=== PATIENT | female | born 1965 | race Caucasian/White ===

== ENCOUNTER 2018-11-17 21:11 | Inpatient (IN) ==
[2018-11-18] MEDS ORDERED: Bisacodyl 10 MG Supp RECTAL PRN (01:27)
--- NOTE | 2018-11-18 02:07 | P.HPIM ---
History of Present Illness Service: [facility] Primary Care Physician: PROVIDER NON STAFF Chief Complaint: Weakness History of Present Illness: 53-year-old female with a history of anxiety, HTN presented to the [place] ER with complaints of numbness and tingling for the last 3 days. It is located in both lower extremities and right upper extremity. She states she is able to move her right hand but has difficulty grasping objects. She does complain of lower back tenderness with palpation. Denies falling or any trauma.She denies any headaches, dizziness, vision changes , chest pain, sob, fevers, chills or abdominal pain. Scans were completed at [place]; head CT reviewed shows no acute intracranial abnormality, cervical spine CT shows mild to moderate multilevel degenerative disc degenerative facet change without evidence of acute fracture. She was transfer to [place] to be evaluated by neurology Inpatient Certification Inpatient Certification: I certify that the inpatient services were ordered in accordance with Medicare regulations governing the order. This includes certification that hospital inpatient services are reasonable and necessary and in the case of services not specified as inpatient-only under 42 CFR 419.22(n), that they are appropriately provided as inpatient services in accordance to with the 2-midnight benchmark under 43 CFR 412.3(e) Estimated Total Length of Stay (Days): 3 Plans for Post Hospital Care: Home Review of Systems Review of Systems: all other systems reviewed are negative [facility] Medical History Medical History Anxiety (Acute) HTN (hypertension) (Acute) Surgical History Surgical History History of cholecystectomy (Acute) Family History Family History Mother Heart disease Social History Social History Substance History: No History of Abuse Second Hand Smoke Exposure: No Smoking Status: Never smoker How Often Do You Have a Drink Containing Alcohol: Monthly or less Immunization History Tetanus Immunization: Unsure Hx Influenza Vaccine This Season: Yes Medications and Allergies Allergies Allergy/AdvReac Type Severity Reaction Status Date / Time citalopram AdvReac Anxiety Verified 11/18/18 03:15 codeine AdvReac Nausea Verified 11/18/18 03:15 nalbuphine AdvReac Nausea Verified 11/18/18 03:13 Active Medications: Active Medications Acetaminophen (Tylenol) 650 mg PO Q4H PRN PRN Reason: Temp > 100.4 Al Hydroxide/Mg Hydroxide (Milk Of Magnesia Liq) 30 ml PO Q12H PRN PRN Reason: Mild Constipation Bisacodyl (Dulcolax Supp) 10 mg RECTAL DAILY PRN PRN Reason: SEVERE CONSITIPATION Lactulose (Lactulose Liq) 30 ml PO DAILY PRN PRN Reason: SEVERE CONSITIPATION Ondansetron HCl (Zofran Inj) 4 mg IV.PUSH Q6H PRN PRN Reason: NAUSEA OR VOMITING Sennosides (Senokot) 17.2 mg PO Q12H PRN PRN Reason: Moderate Constipation Sodium Chloride (Ns Flush) 2 ml IV.FLUSH PRN PRN PRN Reason: FLUSH AFTER USING IV ACCESS Sodium Chloride (Ns Flush) 2 ml IV.FLUSH BID DONNY Physical Exam Vital signs: Intake & Output 11/17/18 11/17/18 11/18/18 06:59 18:59 06:59 Weight 77.111 kg Other: Date of Last Bowel Movement 11/17/18 Weight On Admission 77.328 kg Narrative: GENERAL: In no distress SKIN: Warm and dry. no open lesions EYES: No scleral icterus. No injection or drainage. NECK: Supple, trachea midline. No JVD or lymphadenopathy. CARDIOVASCULAR: Regular rate and rhythm without murmurs, gallops, or rubs. RESPIRATORY: Breath sounds equal bilaterally. No accessory muscle use. GASTROINTESTINAL: Abdomen soft, non-tender, nondistended. MUSCULOSKELETAL: No cyanosis, or edema. Decreased practice management consultant in right hand; 3/5. 5/5 in bilateral lower extremities. decreased sensation in lower extremities. Caprini VTE Risk Assessment Caprini VTE Risk Assessment: No/Low Risk (score <= 1) Caprini Risk Assessment Model: Point Value = 1 Point Value = 2 Point Value = 3 Point Value = 5 Age 41-60 Minor surgery BMI > 25 kg/m2 Swollen legs Varicose veins or History of unexplained or recurrent spontaneous Oral contraceptives or hormone replacement Sepsis (< 1 month) Serious lung disease, including pneumonia (< 1 month) Abnormal pulmonary function Acute myocardial infarction Congestive heart failure (< 1 month) History of inflammatory bowel disease Medical patient at bed rest Age 61-74 Arthroscopic surgery Major open surgery (> 45 min) Laparoscopic surgery (> 45 min) Malignancy Confined to bed (> 72 hours) Immobilizing plaster cast Central venous access Age >= 75 History of VTE Family history of VTE Factor V Leiden Prothrombin [id number] Lupus anticoagulant Anticardiolipin antibodies Elevated serum homocysteine Heparin-induced thrombocytopenia Other congenital or acquired thrombophilia Stroke (< 1 month) Elective arthroplasty Hip, pelvis, or leg fracture Acute spinal cord injury (< 1 month) Prophylaxis Regimen: Total Risk Factor Score Risk Level Prophylaxis Regimen 0-1 Low Early ambulation 2 Moderate Order ONE of the following: *Sequential Compression Device (SCD) *Heparin 5000 units SQ BID 3-4 Higher Order ONE of the following medications: *Heparin 5000 units SQ TID *Enoxaparin/Lovenox 40 mg SQ daily (WT < 150 kg, CrCl > 30 mL/min) *Enoxaparin/Lovenox 30 mg SQ daily (WT < 150 kg, CrCl > 10-29 mL/min) *Enoxaparin/Lovenox 30 mg SQ BID (WT < 150 kg, CrCl > 30 mL/min) AND/OR *Sequential Compression Device (SCD) 5 or more Highest Order ONE of the following medications: *Heparin 5000 units SQ TID (Preferred with Epidurals) *Enoxaparin/Lovenox 40 mg SQ daily (WT < 150 kg, CrCl > 30 mL/min) *Enoxaparin/Lovenox 30 mg SQ daily (WT < 150 kg, CrCl > 10-29 mL/min) *Enoxaparin/Lovenox 30 mg SQ BID (WT < 150 kg, CrCl > 30 mL/min) AND *Sequential Compression Device (SCD) Assessment and Plan Plan 53-year-old female with a history of anxiety, HTN presented to the [place] ER with complaints of numbness and tingling for the last 3 days. Weakness, numbness in right upper and bilateral lower extremities CT head reviewed shows no acute abnormalities CT cervical spine reviewed showed multilevel mild degenerative -Consult neurology, patient was accepted by Dr. Garg; appreciate assistance -Lumbar puncture ordered -MRI brain, MRI cervical spine and lumbar spine ordered -Flexeril p.o. for muscle pain -N.P.o. -Labs; cmp, cbc, tsh, vitamin b12, sed rate HTN, chronic -resume home medication when med rec is complete. DVT prophylaxis: SCDs
[2018-11-18 07:17] LABS: Baso % (Auto) 0.3 % (0.0-2.0); Eos % (Auto) 0.6 % (0.0-4.0); Hematocrit 42.1 % (35.0-46.0); Hemoglobin 14.2 gm/dL (11.6-15.3); Lymph # (Auto) 1.7 th/mm3 (1.0-4.8); Lymph % (Auto) 22.1 % (9.0-44.0); Mean Corpuscular HGB Conc 33.7 % (32.0-36.0); Mean Corpuscular Hemoglobin 29.4 pg (27.0-34.0); Mean Platelet Volume 7.8 fL (7.0-11.0); Mono # (Auto) 0.3 th/mm3 (0.0-0.9); Mono % (Auto) 4.5 % (0.0-8.0); Neut # (Auto) 5.6 th/mm3 (1.8-7.7); Neut % (Auto) 72.5 % (16.0-70.0); Platelet Count 254 th/mm3 (150-450); Red Blood Count 4.84 mil/mm3 (4.00-5.30); Red Cell Distribution Width 14.1 % (11.6-17.2); White Blood Count 7.7 th/mm3 (4.0-11.0)
[2018-11-18 07:38] LABS: Alanine Aminotransferase 15 U/L (10-53); Albumin 3.6 g/dL (3.4-5.0); Anion Gap 5 meq/L (5-15); Aspartate Aminotransferase 8 U/L (15-37); Blood Urea Nitrogen 13 mg/dL (7-18); Calcium 8.7 mg/dL (8.5-10.1); Carbon Dioxide 30.2 meq/L (21.0-32.0); Chloride 106 meq/L (98-107); Glomerular Filtration Rate 71 mL/min (>89); Glucose,Random 82 mg/dL (74-106); Potassium 3.8 meq/L (3.5-5.1); Sodium 141 meq/L (136-145)
[2018-11-18 07:40] LABS: Alkaline Phosphatase 81 U/L (45-117); Total Protein 6.8 g/dL (6.4-8.2)
[2018-11-18 08:04] LABS: Thyroid Stimulating Hormone 1.42 uIU/mL (0.358-3.740)
[2018-11-18] MEDS ORDERED: Gadobutrol PF 10 MMOL/10 ML Vial (for RAD) IV.SIG ONE ×2 (09:35→14:24)
--- NOTE | 2018-11-18 10:04 | MR ---
EXAM DATE: 11/18/2018 9:56 AM EST AGE/SEX: 53 years / Female INDICATIONS: . Bilateral upper and lower extremity numbness and tingling. CLINICAL DATA: This is the patient's initial encounter. Patient reports that signs and symptoms have been present for 2 days and indicates a pain score of 0/10. MEDICAL/SURGICAL HISTORY: Hypertension. Cholecystectomy. COMPARISON: [facility], MR HEAD W & W/O CONTRAST, 11/18/2018. . TECHNIQUE: 3D [id number] MRA was performed. Source images, multiplanar STS MIP, and 3D volum e MIP reconstructions were reviewed. FINDINGS: There is excellent visualization of the major intracranial arteries out to the second-order branch ve ssels. There is no evidence for aneurysm, vessel truncation or stenosis, and no evidence for vascula r malformation. Distal internal carotid artery is normal in caliber. Anterior communicating artery. 3 vessels of anterior cerebral arteries, normal variant. No stenosis. CONCLUSION: 1. No large vessel stenosis or aneurysm. 2. Normal variants as above Electronically signed by: Gil Matthew MD Board Certified Radiologist 11/18/2018 10:03 AM EST
--- NOTE | 2018-11-18 10:27 | MR ---
EXAM DATE: 11/18/2018 10:03 AM EST AGE/SEX: 53 years / Female INDICATIONS: . Bilateral upper and lower extremity numbness and tingling. CLINICAL DATA: This is the patient's initial encounter. Patient reports that signs and symptoms have been present for 2 days and indicates a pain score of 0/10. MEDICAL/SURGICAL HISTORY: Hypertension. Cholecystectomy. COMPARISON: No prior exams available for comparison. TECHNIQUE: Multiplanar, multisequence MRI examination of the lumbar spine was performed without and with 8cc ml Gadavist (gadobutrol) contrast as a single exam dose. FINDINGS: The most caudal-appearing lumbar vertebra is numbered as L5. Vertebra: Homogeneous signal. Disc space narrowing at L1-2 and L2-3 levels. Minimal endplate edema a t L2-3 anteriorly. Minimal retrolisthesis L2 on 3. Conus: Normal level and configuration. Post Contrast: No abnormal areas of contrast enhancement are seen. T12-L1: The thecal sac has a normal diameter. No evidence of disc bulge or protrusion. The neural foramina are patent bilaterally. L1-L2: Moderate right-sided protrusion abuts the ventral thecal sac and abuts the right L2 nerve ro ot lateral recess. No canal stenosis. Neural foramen are patent bilaterally. L2-L3: Minimal retrolisthesis. Mild broad-based disc bulge abuts ventral thecal sac without canal s tenosis. Mild facet arthropathy. Mild neural femoral narrowing on the left. Right neural foramen chirstiansen nt. Trace fluid in the right facet. L3-L4: Mild broad-based disc bulge abuts ventral thecal sac without canal stenosis. The neural for felipe are patent bilaterally. Mild facet arthropathy. L4-L5: Mild broad-based disc bulge abuts ventral thecal sac without canal stenosis. The neural for felipe are patent bilaterally. Mild facet arthropathy. L5-S1: The thecal sac has a normal diameter. No evidence of disc bulge or protrusion. The neural foramina are patent bilaterally. Mild facet arthropathy. CONCLUSION: 1. Moderate right-sided protrusion at L1-2 abuts the right L2 nerve root without canal stenosis. 2. Interval retrolisthesis and mild broad-based disc bulge at L2-3. No canal stenosis. 3. Mild broad-based disc bulges at L3-4 and L4-5 levels without canal stenosis. 4. Diffuse facet arthropathy including trace fluid in the right facet at L2-3. Electronically signed by: Gil Matthew MD Board Certified Radiologist 11/18/2018 10:26 AM EST
--- NOTE | 2018-11-18 10:30 | MR ---
EXAM DATE: 11/18/2018 9:56 AM EST AGE/SEX: 53 years / Female INDICATIONS: . Bilateral upper and lower extremity numbness and tingling. CLINICAL DATA: This is the patient's initial encounter. Patient reports that signs and symptoms have been present for 2 days and indicates a pain score of 0/10. MEDICAL/SURGICAL HISTORY: Hypertension. Cholecystectomy. COMPARISON: [facility], MRA HEAD W/O CONTRAST, 11/18/2018. . TECHNIQUE: Multiplanar, multisequence examination of the brain was performed without and with 8cc ml Gadavist (gadobutrol) contrast as a single exam dose. FINDINGS: Cerebrum: The ventricles are normal for age. No evidence of midline shift, mass lesion, hemorrhage or acute infarction. No extraaxial fluid collections are seen. The pituitary gland and suprasellar cistern are normal in configuration. White Matter: Scattered foci of bright T2 lesions seen within the subcortical, centrum semiovale and periventricular white matter some of which is perpendicular to the ventricular system. Some callosal lesions are seen. Posterior Fossa: The cerebellum and brainstem are intact. The 4th ventricle is midline. The cerebel lopontine angle is unremarkable. The cerebellar tonsils are normal in position. Diffusion Imaging: No focal areas of restricted diffusion are seen. No evidence of acute infarction . Extracranial: The visualized portions of the orbits and paranasal sinuses are unremarkable. Post Contrast: No abnormal areas of parenchymal or dural enhancement. No evidence of blood-brain ba rrier breakdown. CONCLUSION: 1. Nonspecific white matter changes are nonspecific but could be a demyelinating process such as mul tiple sclerosis. No active enhancement. 2. The remainder the brain is otherwise unremarkable. Electronically signed by: Gil Matthew MD Board Certified Radiologist 11/18/2018 10:29 AM EST
--- NOTE | 2018-11-18 10:35 | MR ---
EXAM DATE: 11/18/2018 10:04 AM EST AGE/SEX: 53 years / Female INDICATIONS: . Bilateral upper and lower extremity numbness and tingling. CLINICAL DATA: This is the patient's initial encounter. Patient reports that signs and symptoms have been present for 2 days and indicates a pain score of 0/10. MEDICAL/SURGICAL HISTORY: Hypertension. Cholecystectomy. COMPARISON: No prior exams available for comparison. TECHNIQUE: Multiplanar, multisequence MRI examination of the cervical spine was performed without an d with 8cc ml Gadavist (gadobutrol) contrast as a single exam dose. FINDINGS: Vertebrae: No compression fracture. There is straightening of the cervical spine without spondylolis thesis. Partial fusion with small vertebral bodies at C4-5 likely congenital. This spaces are otherwi se maintained. Cord: Abnormal T2 signal abnormality in the cord at C6 and C7 levels seen predominantly on the right aspect of the cord with slight cord expansion. The remainder the cord is otherwise unremarkable. Post Fossa: The cerebellar tonsils are normal in position. Post Contrast: No abnormal areas of enhancement are seen. C2-C3: The thecal sac has a normal configuration. There is no evidence of disc herniation or spinal canal stenosis. The neural foramina are patent bilaterally. C3-C4: The thecal sac has a normal configuration. There is no evidence of disc herniation or spinal canal stenosis. The neural foramina are patent bilaterally. C4-C5: The thecal sac has a normal configuration. There is no evidence of disc herniation or spinal canal stenosis. The neural foramina are patent bilaterally. C5-C6: Mild broad-based protrusion abuts the ventral thecal sac and abuts the ventral cord causing m ild canal stenosis. Uncovertebral spurring causes moderate left and mild right neural foraminal narro wing. C6-C7: Mild broad-based protrusion abuts the ventral thecal sac and ventral cord causing mild canal stenosis. T2 signal abnormality seen within the cord on the right with slight expansion. Mild neural foraminal narrowing bilaterally. C7-T1: No epidural impressions seen. CONCLUSION: 1. There is abnormal T2 signal abnormality within the right aspect of the cord with slight expansion at C6 and C7 levels with enhancement. Given the findings in the brain is likely related to demyelina ting process such as multiple sclerosis. Neoplasm remains in the differential but felt to be less lik paul. Close follow-up recommended. 2. Mild broad-based protrusion at C5-6 causes mild canal stenosis. 3. Mild broad-based protrusion at C6-7 also causes mild canal stenosis. 4. Neural foraminal narrowing at C5-6 and C6-7 levels as above. 5. 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 Electronically signed by: Gil Matthew MD Board Certified Radiologist 11/18/2018 10:34 AM EST
--- NOTE | 2018-11-18 11:11 | P.CONNEU ---
History of Present Illness Service: Neurology Primary Care Provider: PROVIDER NON STAFF Chief Complaint: Weakness History of Present Illness: 53-year-old female transferred from [facility] has had no neurological coverage for further evaluation. She presented to the ER with weakness in her right hand. Symptoms began with numbness discomfort weakness in her legs right leg mainly. Ongoing for the past week. However on further retrospection she states she had some problems the right leg but was chalking it up to sciatica right hip pain. She denies any vision loss or any history of known optic neuritis, vertigo. She denies any recent ill contacts immunizations. No known history of TIA or stroke. No known history of demyelinating disorder. Review of Systems All other systems reviewed negative except as stated in HPI COUNTS INCLUDE 234 BEDS AT THE [facility] - History History Provided By: Patient - Medical History Medical History: Medical History (Last Reviewed 11/18/18 @ 11:21 by Faith Rolle) Anxiety HTN (hypertension) - Surgical History Surgical History: Surgical History (Last Reviewed 11/18/18 @ 11:21 by Faith Rolle) History of cholecystectomy - Family History Family History: Family History (Last Reviewed 11/18/18 @ 11:21 by Faith Rolle) Mother Heart disease - Tobacco History Second Hand Smoke Exposure: No Smoking Status: Never smoker - Alcohol History How Often Do You Have a Drink Containing Alcohol: Monthly or less - Substance Use History Substance History: No History of Abuse - Immunization History Tetanus Immunization: Unsure Hx Influenza Vaccine This Season: Yes Medications and Allergies Active Medications: Active Medications Acetaminophen (Tylenol) 650 mg PO Q4H PRN PRN Reason: Temp > 100.4 Al Hydroxide/Mg Hydroxide (Milk Of Magnesia Liq) 30 ml PO Q12H PRN PRN Reason: Mild Constipation Bisacodyl (Dulcolax Supp) 10 mg RECTAL DAILY PRN PRN Reason: SEVERE CONSITIPATION Cyclobenzaprine HCl (Flexeril) 5 mg PO Q8H PRN PRN Reason: MUSCLE PAIN Last Admin: 11/18/18 03:10 Dose: 5 mg Lactulose (Lactulose Liq) 30 ml PO DAILY PRN PRN Reason: SEVERE CONSITIPATION Ondansetron HCl (Zofran Inj) 4 mg IV.PUSH Q6H PRN PRN Reason: NAUSEA OR VOMITING Sennosides (Senokot) 17.2 mg PO Q12H PRN PRN Reason: Moderate Constipation Sodium Chloride (Ns Flush) 2 ml IV.FLUSH PRN PRN PRN Reason: FLUSH AFTER USING IV ACCESS Sodium Chloride (Ns Flush) 2 ml IV.FLUSH BID DONNY Last Admin: 11/18/18 08:34 Dose: 2 ml Allergies Allergy/AdvReac Type Severity Reaction Status Date / Time citalopram AdvReac Anxiety Verified 11/18/18 03:15 codeine AdvReac Nausea Verified 11/18/18 03:15 nalbuphine AdvReac Nausea Verified 11/18/18 03:13 Home Medications Medication Instructions Recorded Confirmed Type aspirin 81 mg PO DAILY 11/18/18 11/18/18 History bupropion HCl [Wellbutrin XL] PO AC BREAKFAST 11/18/18 History buspirone PO TID 11/18/18 History diazepam [Valium] PO PRN 11/18/18 History diltiazem HCl [Cardizem] 120 mg PO DAILY 11/18/18 11/18/18 History lisinopril PO DAILY 11/18/18 History Exam Vital signs: Vital Signs 11/17/18 11:30 11/18/18 04:00 11/18/18 08:43 Temperature 98.2 F 98.2 F 98.0 F Pulse Rate 89 87 93 H Respiratory Rate 16 Blood Pressure 140/69 135/65 126/76 Pulse Oximetry 95 94 L 95 Intake & Output 11/17/18 11/18/18 11/18/18 18:59 06:59 18:59 Weight 77.111 kg Other: # Voids 1 Date of Last Bowel Movement 11/17/18 11/17/18 Weight On Admission 77.328 kg Narrative: GENERAL: in NAD, SKIN: Warm and dry. HEAD: Atraumatic. Normocephalic. EYES: Pupils equal and round. No scleral icterus. ENT: No nasal bleeding or discharge. Mucous membranes pink and moist. NECK: Trachea midline. No JVD. CARDIOVASCULAR: Regular rate and rhythm. RESPIRATORY: No accessory muscle use. GASTROINTESTINAL: Abdomen soft, non-tender, nondistended. MUSCULOSKELETAL: Extremities without clubbing, cyanosis, or edema. No obvious deformities. NEUROLOGICAL: Awake and alert. No aphasia, oriented x3 fluent articulate, No facial asymmetry, OU 3-2mm, eomi, VFF, No drift. Right distal hand paresis reduced fine finger movements slow opening and closing of her hand is able to raise all 4 extremity gravity. Mild increased tone in both lower extremities right greater than left. Left hemisensory with reduced pinprick left leg and back with sensory level up to the left C4 region. Brisk knee jerk and ankle 2-3 + with right ankle clonus. Slightly increased tone right greater than left leg. Pinprick normal right leg slightly reduced in the right palm of her hand gait not assessed secondary to fall risk PSYCHIATRIC: Appropriate mood and affect; insight and judgment normal. - Constitutional no acute distress - Routine HEENT Exam Head: Present: normocephalic Eye: Present: EOMI Results - Labs CBC & Chem 7: 11/18/18 06:33 11/18/18 06:33 Labs: Laboratory Results - last 24 hr 11/18/18 11/18/18 11/18/18 06:33 06:33 06:33 WBC 7.7 RBC 4.84 Hgb 14.2 Hct 42.1 MCV 87.0 MCH 29.4 MCHC 33.7 RDW 14.1 Plt Count 254 MPV 7.8 Neut % (Auto) 72.5 H Lymph % (Auto) 22.1 [place] % (Auto) 4.5 Eos % (Auto) 0.6 Baso % (Auto) 0.3 Neut # (Auto) 5.6 Lymph # (Auto) 1.7 [place] # (Auto) 0.3 Eos # (Auto) 0.0 Baso # (Auto) 0.0 WBC Differential . Differential Comment Auto diff final ESR 13 Sodium 141 Potassium 3.8 Chloride 106 Carbon Dioxide 30.2 Anion Gap 5 BUN 13 Creatinine 0.84 Estimated GFR 71 L Random Glucose 82 Calcium 8.7 Total Bilirubin 0.4 AST 8 L ALT 15 Alkaline Phosphatase 81 Total Protein 6.8 Albumin 3.6 Vitamin B12 TSH 11/18/18 06:33 WBC RBC Hgb Hct MCV MCH MCHC RDW Plt Count MPV Neut % (Auto) Lymph % (Auto) [place] % (Auto) Eos % (Auto) Baso % (Auto) Neut # (Auto) Lymph # (Auto) [place] # (Auto) Eos # (Auto) Baso # (Auto) WBC Differential Differential Comment ESR Sodium Potassium Chloride Carbon Dioxide Anion Gap BUN Creatinine Estimated GFR Random Glucose Calcium Total Bilirubin AST ALT Alkaline Phosphatase Total Protein Albumin Vitamin B12 346 TSH 1.420 - Imaging Impressions Cervical Spine MRI 11/18/18 00:00 CONCLUSION: 1. There is abnormal T2 signal abnormality within the right aspect of the cord with slight expansion at C6 and C7 levels with enhancement. Given the findings in the brain is likely related to demyelinating process such as multiple sclerosis. Neoplasm remains in the differential but felt to be less likely. Close follow-up recommended. 2. Mild broad-based protrusion at C5-6 causes mild canal stenosis. 3. Mild broad-based protrusion at C6-7 also causes mild canal stenosis. 4. Neural foraminal narrowing at C5-6 and C6-7 levels as above. 5. 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 Head MRI 11/18/18 00:00 CONCLUSION: 1. Nonspecific white matter changes are nonspecific but could be a demyelinating process such as multiple sclerosis. No active enhancement. 2. The remainder the brain is otherwise unremarkable. Head MRA 11/18/18 00:00 CONCLUSION: 1. No large vessel stenosis or aneurysm. 2. Normal variants as above Lumbar Spine MRI 11/18/18 00:00 CONCLUSION: 1. Moderate right-sided protrusion at L1-2 abuts the right L2 nerve root without canal stenosis. 2. Interval retrolisthesis and mild broad-based disc bulge at L2-3. No canal stenosis. 3. Mild broad-based disc bulges at L3-4 and L4-5 levels without canal stenosis. 4. Diffuse facet arthropathy including trace fluid in the right facet at L2-3. 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 Her symptoms localized to the cervical cord lesion which is affecting the right hemicord. She presents with crossed signs right-sided weakness and left hemisensory. In addition for the past few months she has had some spasms and discomfort mild weakness in her right leg off and on likely related to this underlying condition. Etiology would include demyelinating condition such as multiple sclerosis, autoimmune, metabolic. Less likely infectious. Neoplasm a possibility although the MRI brain findings less likely Recommendations MRI T-spine CSF studies IV Solu-Medrol 1 g/day Physical therapy In the future she will require repeat imaging of her brain and C-spine 6-8 weeks time Discussed with the patient
--- NOTE | 2018-11-18 14:53 | MR ---
EXAM DATE: 11/18/2018 2:44 PM EST AGE/SEX: 53 years / Female INDICATIONS: Extremity numbness. Bilateral upper and lower extremity numbness and weakness. CLINICAL DATA: This is the patient's initial encounter. Patient reports that signs and symptoms have been present for 2 days and indicates a pain score of 0/10. MEDICAL/SURGICAL HISTORY: Hypertension. Cholecystectomy. COMPARISON: No prior exams available for comparison. TECHNIQUE: Multiplanar, multisequence MRI of the thoracic spine was performed without and with 8cc m l Gadavist (gadobutrol) contrast as a single exam dose. 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 No discrete disc protrusion s. No canal stenosis. No cord signal abnormalities within the thoracic cord. There is focal cord sign al abnormality in the lower cervical cord. See cervical spine MRI report. Postcontrast images reveal no abnormal enhancing lesions within the thoracic spine. CONCLUSION: 1. No acute findings. No cord signal abnormalities within the thoracic cord. See cervical spine MRI report. Electronically signed by: Karan Herzog MD Board Certified Radiologist 11/18/2018 2:51 PM EST
[2018-11-18] MEDS: MethylPREDNISolone Sod Suc Inj 500 MG in Sodium Chlor 0.9% Inj 100 ML IV.SIG SCH (15:05)
[2018-11-18 16:11] LABS: C-Reactive Protein 1.94 mg/dL (0.00-0.30)
[2018-11-18 16:11] LABS: Prothrombin Time 10.3 sec (9.8-11.6)
--- NOTE | 2018-11-18 16:28 | OTSOAPIP ---
TIME SESSION COMPLETED: AM TREATMENT TIME: 0 MINS. CHART REVIEWED. HELD TREATMENT TODAY PATIENT SCHEDULED FOR MULTIPLE PROCEDURES PLAN: WILL SEE PATIENT NEXT TREATMENT DAY Therapist: Faith Rolle Signature on file
[2018-11-19] MEDS: Acetaminophen 325 MG Tablet PO PRN ×2 (02:13→21:32)
[2018-11-19] MEDS: MethylPREDNISolone Sod Suc Inj 500 MG in Sodium Chlor 0.9% Inj 100 ML IV.SIG SCH ×2 (02:16→15:07)
--- NOTE | 2018-11-19 09:16 | P.PNNEU ---
Subjective Subjective Comments: rt hand feels stronger. hot/cold dysregulation. no dyspnea. no cp Active Medications: Active Medications Acetaminophen (Tylenol) 650 mg PO Q4H PRN PRN Reason: Temp > 100.4 Last Admin: 11/19/18 02:13 Dose: 650 mg Al Hydroxide/Mg Hydroxide (Milk Of Magnesia Liq) 30 ml PO Q12H PRN PRN Reason: Mild Constipation Bisacodyl (Dulcolax Supp) 10 mg RECTAL DAILY PRN PRN Reason: SEVERE CONSITIPATION Cyclobenzaprine HCl (Flexeril) 5 mg PO Q8H PRN PRN Reason: MUSCLE PAIN Last Admin: 11/18/18 03:10 Dose: 5 mg Methylprednisolone Sodium Succinate 500 mg/ Sodium Chloride 108 mls @ 100 mls/ hr IV.SIG Q12H [facility] Stop: 11/21/18 03:05 Last Infusion: 11/19/18 03:21 Dose: Infused Lactulose (Lactulose Liq) 30 ml PO DAILY PRN PRN Reason: SEVERE CONSITIPATION Ondansetron HCl (Zofran Inj) 4 mg IV.PUSH Q6H PRN PRN Reason: NAUSEA OR VOMITING Sennosides (Senokot) 17.2 mg PO Q12H PRN PRN Reason: Moderate Constipation Sodium Chloride (Ns Flush) 2 ml IV.FLUSH PRN PRN PRN Reason: FLUSH AFTER USING IV ACCESS Sodium Chloride (Ns Flush) 2 ml IV.FLUSH BID DONNY Last Admin: 11/18/18 21:56 Dose: 2 ml Allergies/Adverse Reactions: Allergies Allergy/AdvReac Type Severity Reaction Status Date / Time citalopram AdvReac Anxiety Verified 11/18/18 03:15 codeine AdvReac Nausea Verified 11/18/18 03:15 nalbuphine AdvReac Nausea Verified 11/18/18 03:13 Review of Systems All other systems reviewed negative except as stated in HPI Physical Exam Vital signs: Vital Signs 11/18/18 12:58 11/18/18 17:08 11/18/18 20:35 Temperature 98.0 F 98.4 F 98.2 F Pulse Rate 105 H 95 H 86 Respiratory Rate 18 16 17 Blood Pressure 137/81 114/66 125/75 Pulse Oximetry 96 96 94 L 11/19/18 00:00 11/19/18 01:30 11/19/18 03:53 Temperature 97.5 F L 97.6 F Pulse Rate 79 80 Respiratory Rate 18 16 17 Blood Pressure 126/75 111/62 Pulse Oximetry 95 96 Intake & Output 11/18/18 11/19/18 11/19/18 18:59 06:59 18:59 Intake Total 108 / 108 108 / 108 Balance 108 / 108 108 / 108 Weight 77.3 kg Intake: IV 108 / 108 108 / 108 SoluMEDROL Inj 500 MG In NS Inj 108 / 108 108 / 108 100 ML @ 100 mls/hr IV.SIG Q12H [facility] Rx#:[id number] Oral 0 / 0 Other: # Voids 1 3 Date of Last Bowel Movement 11/17/18 11/17/18 # Bowel Movements 0 Narrative: GENERAL: in NAD, SKIN: Warm and dry. HEAD: Atraumatic. Normocephalic. EYES: Pupils equal and round. No scleral icterus. ENT: No nasal bleeding or discharge. NECK: Trachea midline. No JVD. CARDIOVASCULAR: Regular rate and rhythm. RESPIRATORY: No accessory muscle use. GASTROINTESTINAL: Abdomen soft, non-tender, nondistended. MUSCULOSKELETAL: Extremities without clubbing, cyanosis, or edema. No obvious deformities. NEUROLOGICAL: Awake and alert. No aphasia, oriented x3 fluent articulate, No facial asymmetry, OU 3-2mm, eomi, VFF, No drift. Right distal hand paresis reduced fine finger movements slow opening and closing of her hand is able to raise all 4 extremity gravity. Rt hand able to open and close better. Mild increased tone in both lower extremities right greater than left. Left hemisensory with reduced pinprick left leg and back with sensory level up to the left C4 region. Brisk knee jerk and ankle 2-3+ with right ankle clonus. Slightly increased tone right greater than left leg. Pinprick normal right leg slightly reduced in the right palm of her hand gait not assessed secondary to fall risk PSYCHIATRIC: Appropriate mood and affect; insight and judgment normal. - Constitutional no acute distress - Routine HEENT Exam Head: Present: normocephalic Eye: Present: EOMI Objective Laboratory Results - last 24 hr 11/18/18 11/18/18 11/18/18 15:17 15:17 15:27 ESR 12 PT 10.3 INR 1.0 APTT 29.6 C-Reactive Protein Vitamin B12 Serum IgG Serum Albumin HIV 1&2 Ab/P24 Ag 4thGn 11/18/18 11/18/18 11/18/18 15:27 15:27 15:27 ESR PT INR APTT C-Reactive Protein 1.94 H Vitamin B12 337 Serum IgG Cancelled Serum Albumin Cancelled HIV 1&2 Ab/P24 Ag 4thGn Nonreactive Review/Management - Diagnosis (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 Her symptoms localized to the cervical cord lesion which is affecting the right hemicord. She presents with crossed signs right-sided weakness and left hemisensory. In addition for the past few months she has had some spasms and discomfort mild weakness in her right leg off and on likely related to this underlying condition. Etiology would include demyelinating condition such as multiple sclerosis, autoimmune, metabolic. Less likely infectious. Neoplasm a possibility although the MRI brain findings less likely mri tspine nml esr, nml, hiv negative. Recommendations neuro a little improved CSF studies-pending IV Solu-Medrol 1 g/day day 2/3 Physical therapy In the future she will require repeat imaging of her brain and C-spine 6-8 weeks time Discussed with the patient
[2018-11-19 09:51] LABS: RPR Screen For Reflex FTA Nonreactive (Nonreactive)
[2018-11-19 11:57] LABS: Lymphocytes, CSF 97 %; Monocytes,CSF 3 %; Neutrophils,CSF 0 %; RBC on Tube 4 0 /mm3
--- NOTE | 2018-11-19 14:06 | P.PNIM ---
Subjective Interval history: Patient reports she had her lumbar puncture done earlier this morning and is on bedrest. She says that after 2 doses of IV steroids she has increased movement and use of her right hand, but only about 50% better so far. Physical Exam Vital signs: Vital Signs 11/18/18 17:08 11/18/18 20:35 11/19/18 00:00 Temperature 98.4 F 98.2 F 97.5 F L Pulse Rate 95 H 86 79 Respiratory Rate 16 17 18 Blood Pressure 114/66 125/75 126/75 Pulse Oximetry 96 94 L 95 11/19/18 01:30 11/19/18 03:53 11/19/18 08:00 Temperature 97.6 F 98.1 F Pulse Rate 80 90 Respiratory Rate 16 17 20 Blood Pressure 111/62 143/85 H Pulse Oximetry 96 95 11/19/18 12:59 Temperature 98.7 F Pulse Rate 107 H Respiratory Rate 22 Blood Pressure 158/84 H Pulse Oximetry 96 Intake & Output 11/18/18 11/19/18 11/19/18 18:59 06:59 18:59 Intake Total 108 / 108 108 / 108 Balance 108 / 108 108 / 108 Weight 77.3 kg Intake: IV 108 / 108 108 / 108 SoluMEDROL Inj 500 MG In NS Inj 108 / 108 108 / 108 100 ML @ 100 mls/hr IV.SIG Q12H [facility] Rx#:[id number] Oral 0 / 0 Other: # Voids 1 3 Date of Last Bowel Movement 11/17/18 11/17/18 # Bowel Movements 0 Narrative: GENERAL: In no distress SKIN: Warm and dry. no open lesions EYES: No scleral icterus. No injection or drainage. NECK: Supple, trachea midline. No JVD or lymphadenopathy. CARDIOVASCULAR: Regular rate and rhythm without murmurs, gallops, or rubs. RESPIRATORY: Breath sounds equal bilaterally. No accessory muscle use. GASTROINTESTINAL: Abdomen soft, non-tender, nondistended. MUSCULOSKELETAL: No cyanosis, or edema. 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 5/5 in bilateral lower extremities. decreased sensation in lower extremities. Results Labs CBC & Chem 7: 11/18/18 06:33 11/18/18 06:33 Labs: Microbiology 11/19/18 10:20 Lumbar Puncture Gram Stain - Final Imaging Imaging: Impressions Thoracic Spine MRI 11/18/18 13:10 CONCLUSION: 1. No acute findings. No cord signal abnormalities within the thoracic cord. See cervical spine MRI report. Assessment and Plan (1) Transverse myelitis: Code(s): G37.3 - Acute transverse myelitis in demyelinating disease of central nervous system Status: Acute (2) Multiple sclerosis: Code(s): G35 - Multiple sclerosis Status: Acute Plan 53-year-old female with a history of anxiety, HTN presented to the [facility] with complaints of numbness and tingling for 3 days. Acute transverse myelitis Undergoing workup for demyelination from autoimmune versus MS versus other CT showed no abnormalities MRI of C-spine shows cervical cord lesion Lumbar puncture performed this morning, results pending Continue Flexeril for muscle pain Resume regular diet Appreciate neurology consult Hypertension Resume diltiazem, continue holding lisinopril DVT prophylaxis SCDs
[2018-11-19] MEDS: dilTIAZem CD 120 MG Capsule PO SCH (15:07)
[2018-11-19] MEDS ORDERED: diazePAM 5 MG Tablet PO PRN (17:00)
--- NOTE | 2018-11-19 17:17 | IR ---
EXAM DATE: 11/19/2018 10:56 AM EST AGE/SEX: 53 years / Female INDICATIONS: Patient presents with bilateral lower extremely numbness and tingling in need of a Lumb ar Puncture with Opening Pressures to rule out Multiple Sclerosis. CLINICAL DATA: This is the patient's initial encounter. Patient reports that signs and symptoms have been present for 4 - 6 days and indicates a pain score of 0/10. MEDICAL/SURGICAL HISTORY: Hypertension. Anxiety Cholecystectomy. COMPARISON: No prior exams available for comparison. FLUORO TIME (min): 0:38 IMAGE SERIES: 2 RADIATION DOSE: 52mGY CAK ACCESS SITE: L2-3 LUMBAR PUNCTURE TIME: 1020 hours OPENING PRESSURE: 13 cm of water CLOSING PRESSURE: not requested FLUID: Total volume of 21 cc of clear fluid was removed. Fluid was sent to lab for ordered studies. ; . . PROCEDURE: 1. Fluoroscopic guided lumbar puncture. The risks, benefits and alternatives to the procedure were explained and verbal and written consent w as obtained. The site was prepped in sterile fashion. Full sterile technique was used, including ca p, mask, sterile gloves and gown and a large sterile sheet. Hand hygiene and 2% chlorhexidine and/or betadine/alcohol prep was utilized per protocol for cutaneous antisepsis. The skin and subcutaneous tissues were infiltrated with local anesthetic solution. With fluoroscopic guidance the lumbar thecal sac was punctured at the level above. The fluid describ ed above was removed without difficulty. The patient tolerated the procedure well and there were no complications. CONCLUSION: 1. Uncomplicated fluoroscopically guided lumbar puncture. Electronically signed by: Alvaro Kennedy MD Board Certified Radiologist 11/19/2018 5:15 PM EST
[2018-11-20] MEDS: MethylPREDNISolone Sod Suc Inj 500 MG in Sodium Chlor 0.9% Inj 100 ML IV.SIG SCH ×2 (01:27→14:00)
[2018-11-20] MEDS: Acetaminophen 325 MG Tablet PO PRN ×2 (01:30→22:00)
[2018-11-20] MEDS ORDERED: BUPROPION HCL 300 MG PO SCH (07:00)
[2018-11-20] MEDS: buPROPion 150 MG 12 HR Tablet PO SCH ×2 (08:25→17:21)
[2018-11-20] MEDS: dilTIAZem CD 120 MG Capsule PO SCH (08:25)
--- NOTE | 2018-11-20 12:15 | P.PNIM ---
Subjective Interval history: f/u for transverse myelitis, numbness, weakness of left hand c/o right leg pain, muscle spasm on right thigh, comes and goes. Had it before c/o left lower back pain, comes and goes, does not radiate Physical Exam Vital signs: Vital Signs 11/19/18 12:59 11/19/18 19:51 11/19/18 22:02 Temperature 98.7 F 98.2 F Pulse Rate 107 H 87 Respiratory Rate 18 17 Blood Pressure 158/84 H 117/73 Pulse Oximetry 96 97 11/19/18 23:36 11/20/18 04:41 11/20/18 08:00 Temperature 98.1 F 98.1 F 97.8 F Pulse Rate 78 70 76 Respiratory Rate 18 Blood Pressure 106/55 L 116/64 128/68 Pulse Oximetry 96 98 94 L 11/20/18 12:08 Temperature 98.1 F Pulse Rate 82 Respiratory Rate 20 Blood Pressure 124/60 Pulse Oximetry 98 Intake & Output 11/19/18 11/20/18 11/20/18 18:59 06:59 18:59 Intake Total 108 / 108 828 / 828 Balance 108 / 108 828 / 828 Weight 80.3 kg Intake: IV 108 / 108 108 / 108 SoluMEDROL Inj 500 MG In NS Inj 108 / 108 108 / 108 100 ML @ 100 mls/hr IV.SIG Q12H [facility] Rx#:[id number] Oral 720 / 720 Other: # Voids 3 2 Date of Last Bowel Movement 11/19/18 11/19/18 Narrative: GENERAL: Well-developed, well-nourished, female in no acute distress SKIN: Warm and dry. HEAD: Atraumatic. Normocephalic. NECK: Trachea midline. No JVD. CARDIOVASCULAR: Regular rate and rhythm. RESPIRATORY: No accessory muscle use. Clear to auscultation. Breath sounds equal bilaterally. GASTROINTESTINAL: Abdomen soft, non-tender, nondistended. Hepatic and splenic margins not palpable. MUSCULOSKELETAL: Extremities without clubbing, cyanosis, or edema. No obvious deformities. NEUROLOGICAL: Awake and alert. No obvious cranial nerve deficits. Generalized weakness, moving all 4 extremities except left hand weakness. Normal speech. PSYCHIATRIC: Appropriate mood and affect; insight and judgment normal. Results Labs CBC & Chem 7: 11/18/18 06:33 11/18/18 06:33 Labs: Microbiology 11/19/18 10:20 Lumbar Puncture Gram Stain - Final 11/19/18 10:20 Lumbar Puncture CSF Culture - Preliminary No growth in 24 hours Imaging Imaging: Impressions Lumbar Puncture Fluoroscopy 11/19/18 13:10 CONCLUSION: 1. Uncomplicated fluoroscopically guided lumbar puncture. Assessment and Plan (1) Transverse myelitis: Code(s): G37.3 - Acute transverse myelitis in demyelinating disease of central nervous system Status: Acute (2) Multiple sclerosis: Code(s): G35 - Multiple sclerosis Status: Acute Plan 53-year-old female with a history of anxiety, HTN presented to the [facility] with complaints of numbness and tingling for 3 days. Acute transverse myelitis -Undergoing workup for demyelination from autoimmune versus MS versus other -CT showed no abnormalities -MRI of C-spine shows cervical cord lesion -Continue Flexeril prn for muscle pain -Resume regular diet -Neurology following, appreciate assistance -S/P Lumbar puncture 11/19/18, CSF culture no growth in 24 hours, follow results - CSF studies pending, follow results -continue IV solu-Medrol per neuro recommendation, monitor renal function -right leg muscle spasm, on prn flexeril Hypertension -BP labile -continue diltiazem, continue holding lisinopril -monitor BP, adjust medication accordingly Anxiety/Depression -Chronic -continue home medications, Wellbutrin and Buspirone -monitor mental status DVT Proph:SCD's
--- NOTE | 2018-11-20 16:20 | P.PNNEU ---
Subjective Subjective Comments: No cp, no dyspnea, no padilla, no focal weakness, no vision loss Active Medications: Active Medications Acetaminophen (Tylenol) 650 mg PO Q4H PRN PRN Reason: Temp > 100.4 Last Admin: 11/20/18 01:30 Dose: 650 mg Al Hydroxide/Mg Hydroxide (Milk Of Magnesia Liq) 30 ml PO Q12H PRN PRN Reason: Mild Constipation Aspirin (Aspirin Chew) 81 mg PO DAILY [facility] Last Admin: 11/20/18 08:25 Dose: 81 mg Bisacodyl (Dulcolax Supp) 10 mg RECTAL DAILY PRN PRN Reason: SEVERE CONSITIPATION Bupropion HCl (Wellbutrin Sr) 150 mg PO BIDAC [facility] Last Admin: 11/20/18 08:25 Dose: 150 mg Buspirone HCl (Buspar) 15 mg PO TID [facility] Last Admin: 11/20/18 14:00 Dose: 15 mg Cyclobenzaprine HCl (Flexeril) 5 mg PO Q8H PRN PRN Reason: MUSCLE PAIN Last Admin: 11/18/18 03:10 Dose: 5 mg Diazepam (Valium) 5 mg PO BID PRN PRN Reason: ANXIETY Diltiazem HCl (Cardizem Cd 24hr) 120 mg PO DAILY [facility] Last Admin: 11/20/18 08:25 Dose: 120 mg Methylprednisolone Sodium Succinate 500 mg/ Sodium Chloride 108 mls @ 100 mls/ hr IV.SIG Q12H [facility] Stop: 11/21/18 03:05 Last Infusion: 11/20/18 15:05 Dose: Infused Lactulose (Lactulose Liq) 30 ml PO DAILY PRN PRN Reason: SEVERE CONSITIPATION Ondansetron HCl (Zofran Inj) 4 mg IV.PUSH Q6H PRN PRN Reason: NAUSEA OR VOMITING Sennosides (Senokot) 17.2 mg PO Q12H PRN PRN Reason: Moderate Constipation Sodium Chloride (Ns Flush) 2 ml IV.FLUSH PRN PRN PRN Reason: FLUSH AFTER USING IV ACCESS Sodium Chloride (Ns Flush) 2 ml IV.FLUSH BID [facility] Last Admin: 11/20/18 08:25 Dose: 2 ml Allergies/Adverse Reactions: Allergies Allergy/AdvReac Type Severity Reaction Status Date / Time citalopram AdvReac Anxiety Verified 11/18/18 03:15 codeine AdvReac Nausea Verified 11/18/18 03:15 nalbuphine AdvReac Nausea Verified 11/18/18 03:13 Review of Systems All other systems reviewed negative except as stated in HPI Physical Exam Vital signs: Vital Signs 11/19/18 19:51 11/19/18 22:02 11/19/18 23:36 Temperature 98.2 F 98.1 F Pulse Rate 87 78 Respiratory Rate 18 17 18 Blood Pressure 117/73 106/55 L Pulse Oximetry 97 96 11/20/18 04:41 11/20/18 08:00 11/20/18 12:08 Temperature 98.1 F 97.8 F 98.1 F Pulse Rate 70 76 82 Respiratory Rate 18 18 20 Blood Pressure 116/64 128/68 124/60 Pulse Oximetry 98 94 L 98 Intake & Output 11/19/18 11/20/18 11/20/18 18:59 06:59 18:59 Intake Total 108 / 108 828 / 828 108 / 108 Balance 108 / 108 828 / 828 108 / 108 Weight 80.3 kg Intake: IV 108 / 108 108 / 108 108 / 108 SoluMEDROL Inj 500 MG In NS Inj 108 / 108 108 / 108 108 / 108 100 ML @ 100 mls/hr IV.SIG Q12H [facility] Rx#:[id number] Oral 720 / 720 Other: # Voids 3 2 Date of Last Bowel Movement 11/19/18 11/19/18 Narrative: GENERAL: in NAD, SKIN: Warm and dry. HEAD: Atraumatic. Normocephalic. EYES: Pupils equal and round. No scleral icterus. ENT: No nasal bleeding or discharge. NECK: Trachea midline. No JVD. CARDIOVASCULAR: Regular rate and rhythm. RESPIRATORY: No accessory muscle use. GASTROINTESTINAL: Abdomen soft, non-tender, nondistended. MUSCULOSKELETAL: Extremities without clubbing, cyanosis, or edema. No obvious deformities. NEUROLOGICAL: Awake and alert. No aphasia, oriented x3 fluent articulate, No facial asymmetry, OU 3-2mm, eomi, VFF, No drift. Right distal hand paresis reduced fine finger movements slow opening and closing of her hand is able to raise all 4 extremity gravity. Rt hand able to open and close better. Mild increased tone in both lower extremities right greater than left. Left hemisensory with reduced pinprick left leg and back with sensory level up to the left C4 region. Brisk knee jerk and ankle 2-3+ with right ankle clonus. Slightly increased tone right greater than left leg. Pinprick normal right leg slightly reduced in the right palm of her hand gait not assessed secondary to fall risk PSYCHIATRIC: Appropriate mood and affect; insight and judgment normal. - Constitutional no acute distress - Routine HEENT Exam Head: Present: normocephalic Eye: Present: EOMI Objective Microbiology 11/19/18 10:20 Gram Stain - Final Lumbar Puncture CSF Culture - Preliminary No growth in 24 hours Review/Management - Diagnosis (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 Her symptoms localized to the cervical cord lesion which is affecting the right hemicord. She presents with crossed signs right-sided weakness and left hemisensory. In addition for the past few months she has had some spasms and discomfort mild weakness in her right leg off and on likely related to this underlying condition. Etiology would include demyelinating condition such as multiple sclerosis, autoimmune, metabolic. Less likely infectious. Neoplasm a possibility although the MRI brain findings less likely mri tspine nml esr, nml, hiv negative. Recommendations neuro a little improved CSF studies-MS panel pending IV Solu-Medrol 1 g/day day 3/3 Physical therapy In the future she will require repeat imaging of her brain and C-spine 6-8 weeks time Discussed with the patient
[2018-11-20 19:26] LABS: Bacteria,Urine Many /hpf; Bilirubin,Urine Negative (Negative); Clarity,Urine Hazy (Clear); Color,Urine Yellow (Yellw/Straw); Glucose,Urine (UA) 50 mg/dL (Negative); Leukocyte Esterase,Urine Negative (Negative); Mucus,Urine Few /lpf (Occasional); Nitrite,Urine Negative (Negative); Specific Gravity,Urine 1.033 (1.002-1.035); Squamous Epithelial Cell,Urine 4 /hpf (0-5)
[2018-11-20 23:50] LABS: Enterovirus (PCR)Source CSF; Enterovirus RNA Qual (PCR) Negative (Negative)
[2018-11-21] MEDS: MethylPREDNISolone Sod Suc Inj 500 MG in Sodium Chlor 0.9% Inj 100 ML IV.SIG SCH (01:35)
[2018-11-21] MEDS: Acetaminophen 325 MG Tablet PO PRN (02:43)
[2018-11-21 03:52] LABS: DS DNA Ab (Crithidia) NEGATIVE (NEGATIVE)
[2018-11-21 06:15] LABS: Hematocrit 43.3 % (35.0-46.0); Hemoglobin 14.3 gm/dL (11.6-15.3); Mean Corpuscular Hemoglobin 28.5 pg (27.0-34.0); Mean Corpuscular Volume 86.4 fL (80.0-100.0); Mean Platelet Volume 8.1 fL (7.0-11.0); Platelet Count 252 th/mm3 (150-450); Red Cell Distribution Width 14.4 % (11.6-17.2); White Blood Count 18.7 th/mm3 (4.0-11.0)
[2018-11-21 06:57] LABS: Calcium 9.1 mg/dL (8.5-10.1); Carbon Dioxide 27.6 meq/L (21.0-32.0); Potassium 4.4 meq/L (3.5-5.1)
--- NOTE | 2018-11-21 08:12 | P.PNNEU ---
Subjective Subjective Comments: No cp, no dyspnea, no padilla, , no vision loss. Right hand feels stronger but not back to baseline had cramps last night improved with Flexeril Active Medications: Active Medications Acetaminophen (Tylenol) 650 mg PO Q4H PRN PRN Reason: Temp > 100.4 Last Admin: 11/21/18 02:43 Dose: 650 mg Al Hydroxide/Mg Hydroxide (Milk Of Magnesia Liq) 30 ml PO Q12H PRN PRN Reason: Mild Constipation Aspirin (Aspirin Chew) 81 mg PO DAILY [facility] Last Admin: 11/20/18 08:25 Dose: 81 mg Bisacodyl (Dulcolax Supp) 10 mg RECTAL DAILY PRN PRN Reason: SEVERE CONSITIPATION Bupropion HCl (Wellbutrin Sr) 150 mg PO BIDAC [facility] Last Admin: 11/20/18 17:21 Dose: 150 mg Buspirone HCl (Buspar) 15 mg PO TID [facility] Last Admin: 11/20/18 17:21 Dose: 15 mg Cyclobenzaprine HCl (Flexeril) 5 mg PO Q8H PRN PRN Reason: MUSCLE PAIN Last Admin: 11/21/18 02:43 Dose: 5 mg Diazepam (Valium) 5 mg PO BID PRN PRN Reason: ANXIETY Diltiazem HCl (Cardizem Cd 24hr) 120 mg PO DAILY [facility] Last Admin: 11/20/18 08:25 Dose: 120 mg Lactulose (Lactulose Liq) 30 ml PO DAILY PRN PRN Reason: SEVERE CONSITIPATION Ondansetron HCl (Zofran Inj) 4 mg IV.PUSH Q6H PRN PRN Reason: NAUSEA OR VOMITING Sennosides (Senokot) 17.2 mg PO Q12H PRN PRN Reason: Moderate Constipation Sodium Chloride (Ns Flush) 2 ml IV.FLUSH PRN PRN PRN Reason: FLUSH AFTER USING IV ACCESS Sodium Chloride (Ns Flush) 2 ml IV.FLUSH BID [facility] Last Admin: 11/20/18 23:30 Dose: 2 ml Allergies/Adverse Reactions: Allergies Allergy/AdvReac Type Severity Reaction Status Date / Time citalopram AdvReac Anxiety Verified 11/18/18 03:15 codeine AdvReac Nausea Verified 11/18/18 03:15 nalbuphine AdvReac Nausea Verified 11/18/18 03:13 Review of Systems All other systems reviewed negative except as stated in HPI Physical Exam Vital signs: Vital Signs 11/20/18 12:08 11/20/18 16:00 11/20/18 20:22 Temperature 98.1 F 97.9 F 97.3 F L Pulse Rate 82 74 58 L Respiratory Rate 20 20 16 Blood Pressure 124/60 119/64 126/69 Pulse Oximetry 98 96 95 11/20/18 22:30 11/21/18 00:17 11/21/18 03:13 Temperature 97.6 F Pulse Rate 62 Respiratory Rate 17 16 17 Blood Pressure 133/72 Pulse Oximetry 97 Intake & Output 11/20/18 11/21/18 11/21/18 18:59 06:59 18:59 Intake Total 108 / 108 728 / 728 Balance 108 / 108 728 / 728 Weight 80.3 kg Intake: IV 108 / 108 108 / 108 SoluMEDROL Inj 500 MG In NS Inj 108 / 108 108 / 108 100 ML @ 100 mls/hr IV.SIG Q12H [facility] Rx#:[id number] Oral 620 / 620 Other: # Voids 2 4 Date of Last Bowel Movement 11/19/18 11/19/18 # Bowel Movements 0 Narrative: GENERAL: in NAD, SKIN: Warm and dry. HEAD: Atraumatic. Normocephalic. EYES: Pupils equal and round. No scleral icterus. ENT: No nasal bleeding or discharge. NECK: Trachea midline. No JVD. CARDIOVASCULAR: Regular rate and rhythm. RESPIRATORY: No accessory muscle use. GASTROINTESTINAL: Abdomen soft, non-tender, nondistended. MUSCULOSKELETAL: Extremities without clubbing, cyanosis, or edema. NEUROLOGICAL: Awake and alert. No aphasia, oriented x3 fluent articulate, No facial asymmetry, eomi, VFF, No drift. Right hand strength better fine finger movement amplitude finger tap still slow but j2ee java developer strength improved. Mild increased tone in both lower extremities right greater than left. Left hemisensory with reduced pinprick left leg and back with sensory level up to the left C4 region. Brisk knee jerk and ankle 2-3+ with right ankle clonus. Slightly increased tone right greater than left leg. Pinprick normal right leg slightly reduced in the right palm of her hand gait not assessed secondary to fall risk PSYCHIATRIC: Appropriate mood and affect; insight and judgment normal. - Constitutional no acute distress - Routine HEENT Exam Head: Present: normocephalic Eye: Present: EOMI Objective Laboratory Results - last 24 hr 11/18/18 11/18/18 11/19/18 10:20 15:27 10:20 WBC RBC Hgb Hct MCV MCH MCHC RDW Plt Count MPV Sodium Potassium Chloride Carbon Dioxide Anion Gap BUN Creatinine Estimated GFR Random Glucose Calcium Urine Color Urine Clarity Urine pH Ur Specific [place] Urine Protein Urine Glucose (UA) Urine Ketones Urine Occult Blood Urine Nitrate Urine Bilirubin Urine Urobilinogen Ur Leukocyte Esterase Urine RBC Urine WBC Ur Squamous Epith Cells Urine Bacteria Urine Mucus Micro UA Comment Ur Microscopic Review Urine Culture Comments Serum IgG Cancelled Serum Albumin Cancelled CSF Treponema Ab (FTA) Non-reactive Anti-ds DNA Titer (Crith) ND Anti-ds DNA (Crithidia) Negative Enterovirus Source Csf Enterovirus RNA (PCR) Negative 11/20/18 11/21/18 11/21/18 18:25 05:27 05:27 WBC 18.7 H RBC 5.00 Hgb 14.3 Hct 43.3 MCV 86.4 MCH 28.5 MCHC 33.0 RDW 14.4 Plt Count 252 MPV 8.1 Sodium 142 Potassium 4.4 Chloride 106 Carbon Dioxide 27.6 Anion Gap 8 BUN 32 H Creatinine 0.92 Estimated GFR 64 L Random Glucose 159 H Calcium 9.1 Urine Color Yellow Urine Clarity Hazy H Urine pH 6.0 Ur Specific [place] 1.033 Urine Protein Negative Urine Glucose (UA) 50 Urine Ketones Negative Urine Occult Blood Negative Urine Nitrate Negative Urine Bilirubin Negative Urine Urobilinogen Less than 2 Ur Leukocyte Esterase Negative Urine RBC Less than 1 Urine WBC 2 Ur Squamous Epith Cells 4 Urine Bacteria Many H Urine Mucus Few H Micro UA Comment Culture indicated Ur Microscopic Review Not Reportable Urine Culture Comments Culture indicated Serum IgG Serum Albumin CSF Treponema Ab (FTA) Anti-ds DNA Titer (Crith) Anti-ds DNA (Crithidia) Enterovirus Source Enterovirus RNA (PCR) Microbiology 11/19/18 10:20 Gram Stain - Final Lumbar Puncture CSF Culture - Preliminary No growth in 48 hours Review/Management - Diagnosis (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 Her symptoms localized to the cervical cord lesion which is affecting the right hemicord. She presents with crossed signs right-sided weakness and left hemisensory. In addition for the past few months she has had some spasms and discomfort mild weakness in her right leg off and on likely related to this underlying condition. Etiology would include demyelinating condition such as multiple sclerosis, autoimmune, metabolic. Less likely infectious. Neoplasm a possibility although the MRI brain findings less likely mri tspine nml esr, nml, hiv, RPR negative. Completed 3 days of IV Solu-Medrol 1 g a day Recommendations Neuro improved but not at baseline Home on prednisone 30 mg x 5 days, followed by 20 mg x 5 days followed by 10 mg x 5 days followed by 5 mg x 5 days CSF studies-MS panel pending Physical therapy In the future she will require repeat imaging of her brain and C-spine 6-8 weeks time Discussed with the patient Discharge planning follow-up in the outpatient setting in 2-3 weeks
[2018-11-21] MEDS: dilTIAZem CD 120 MG Capsule PO SCH (09:17)
[2018-11-21] MEDS: buPROPion 150 MG 12 HR Tablet PO SCH (09:17)
--- NOTE | 2018-11-21 10:17 | P.DS ---
DS: Providers Date of admission: 11/17/18 23:20 Primary care physician: PROVIDER NON STAFF Consults: 11/18/18 01:27 Consult to Neurology Routine Consulting Provider: Gama Garg Reason for Consultation: tx from [facility] Notified:: Service Spoke with:: Wil Date Notified:: 11/18/18 Time Notified:: 01:32 Ordering Provider: LUCIANA Brief History from admission: 53-year-old female with a history of anxiety, HTN presented to the [place] [facility] with complaints of numbness and tingling for the last 3 days. It is located in both lower extremities and right upper extremity. She states she is able to move her right hand but has difficulty grasping objects. She does complain of lower back tenderness with palpation. Denies falling or any trauma.She denies any headaches, dizziness, vision changes , chest pain, sob, fevers, chills or abdominal pain. Scans were completed at [place]; head CT reviewed shows no acute intracranial abnormality, cervical spine CT shows mild to moderate multilevel degenerative disc degenerative facet change without evidence of acute fracture. She was transfer to [place] to be evaluated by neurology DS: Diagnosis Discharge Diagnosis (1) Transverse myelitis: Status: Acute (2) Multiple sclerosis: Status: Acute DS: Summary This patient is a 53-year-old female with a history of anxiety, HTN presented to the [place] [facility] with complaints of numbness and tingling for 3 days. Acute transverse myelitis -Undergoing workup for demyelination from autoimmune versus MS versus other -CT showed no abnormalities -MRI of C-spine shows cervical cord lesion -Continue Flexeril prn for muscle pain -Resume regular diet -Neurology following, appreciate assistance -S/P Lumbar puncture 11/19/18, CSF culture no growth in 48 hours, follow results - CSF studies- negative for malignant cells -continue IV solu-Medrol per neuro recommendation, monitor renal function -right leg muscle spasm, and right hand numbness, -continue on prn flexeril -may continue OT as an outpatient Hypertension -BP improving -continue diltiazem, continue holding lisinopril -monitor BP, adjust medication accordingly Anxiety/Depression -Chronic -continue home medications, Wellbutrin and Buspirone -monitor mental status DVT Proph:SCD's Time Spent with Patient Total time spent providing and/or coordinating discharge services: Greater than 30 minutes Specific discharge activities: OT exercises per OT instructions Exam Narrative Exam Narrative: GENERAL: Well-developed, well-nourished female in no acute distress SKIN: Warm and dry. HEAD: Atraumatic. Normocephalic. EYES: Pupils equal and round. No scleral icterus. No injection or drainage. ENT: No nasal bleeding or discharge. Mucous membranes pink and moist. NECK: Trachea midline. No JVD. CARDIOVASCULAR: Regular rate and rhythm. RESPIRATORY: No accessory muscle use. Clear to auscultation. Breath sounds equal bilaterally. GASTROINTESTINAL: Abdomen soft, non-tender, nondistended. Hepatic and splenic margins not palpable. MUSCULOSKELETAL: Extremities without clubbing, cyanosis, or edema. No obvious deformities. NEUROLOGICAL: Awake and alert and oriented x 3. Generalized weakness, moving all 4 extremities. Except right hand with decreased range of motion and positive for stiffness. Normal speech. PSYCHIATRIC: Appropriate mood and affect; insight and judgment normal. Results Labs on day of discharge: Labs from last 24 hours 11/21/18 11/21/18 11/20/18 05:27 05:27 18:25 WBC 18.7 H RBC 5.00 Hgb 14.3 Hct 43.3 MCV 86.4 MCH 28.5 MCHC 33.0 RDW 14.4 Plt Count 252 MPV 8.1 Sodium 142 Potassium 4.4 Chloride 106 Carbon Dioxide 27.6 Anion Gap 8 BUN 32 H Creatinine 0.92 Estimated GFR 64 L Random Glucose 159 H Calcium 9.1 Urine Color Yellow Urine Clarity Hazy H Urine pH 6.0 Ur Specific [place] 1.033 Urine Protein Negative Urine Glucose (UA) 50 Urine Ketones Negative Urine Occult Blood Negative Urine Nitrate Negative Urine Bilirubin Negative Urine Urobilinogen Less than 2 Ur Leukocyte Esterase Negative Urine RBC Less than 1 Urine WBC 2 Ur Squamous Epith Cells 4 Urine Bacteria Many H Urine Mucus Few H Micro UA Comment Culture indicated Ur Microscopic Review Not Reportable Urine Culture Comments Culture indicated Serum IgG Serum Albumin CSF Treponema Ab (FTA) Anti-ds DNA Titer (Crith) Anti-ds DNA (Crithidia) Enterovirus Source Enterovirus RNA (PCR) 11/19/18 11/18/18 11/18/18 10:20 15:27 10:20 WBC RBC Hgb Hct MCV MCH MCHC RDW Plt Count MPV Sodium Potassium Chloride Carbon Dioxide Anion Gap BUN Creatinine Estimated GFR Random Glucose Calcium Urine Color Urine Clarity Urine pH Ur Specific [place] Urine Protein Urine Glucose (UA) Urine Ketones Urine Occult Blood Urine Nitrate Urine Bilirubin Urine Urobilinogen Ur Leukocyte Esterase Urine RBC Urine WBC Ur Squamous Epith Cells Urine Bacteria Urine Mucus Micro UA Comment Ur Microscopic Review Urine Culture Comments Serum IgG Cancelled Serum Albumin Cancelled CSF Treponema Ab (FTA) Non-reactive Anti-ds DNA Titer (Crith) ND Anti-ds DNA (Crithidia) Negative Enterovirus Source Csf Enterovirus RNA (PCR) Negative Preliminary micro results at discharge 11/19/18 10:20 CSF Culture - Preliminary Lumbar Puncture No growth in 48 hours Impressions ITS Impressions Cervical Spine MRI 11/18/18 00:00 CONCLUSION: 1. There is abnormal T2 signal abnormality within the right aspect of the cord with slight expansion at C6 and C7 levels with enhancement. Given the findings in the brain is likely related to demyelinating process such as multiple sclerosis. Neoplasm remains in the differential but felt to be less likely. Close follow-up recommended. 2. Mild broad-based protrusion at C5-6 causes mild canal stenosis. 3. Mild broad-based protrusion at C6-7 also causes mild canal stenosis. 4. Neural foraminal narrowing at C5-6 and C6-7 levels as above. 5. 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 Head MRI 11/18/18 00:00 CONCLUSION: 1. Nonspecific white matter changes are nonspecific but could be a demyelinating process such as multiple sclerosis. No active enhancement. 2. The remainder the brain is otherwise unremarkable. Head MRA 11/18/18 00:00 CONCLUSION: 1. No large vessel stenosis or aneurysm. 2. Normal variants as above Lumbar Spine MRI 11/18/18 00:00 CONCLUSION: 1. Moderate right-sided protrusion at L1-2 abuts the right L2 nerve root without canal stenosis. 2. Interval retrolisthesis and mild broad-based disc bulge at L2-3. No canal stenosis. 3. Mild broad-based disc bulges at L3-4 and L4-5 levels without canal stenosis. 4. Diffuse facet arthropathy including trace fluid in the right facet at L2-3. Thoracic Spine MRI 11/18/18 13:10 CONCLUSION: 1. No acute findings. No cord signal abnormalities within the thoracic cord. See cervical spine MRI report. Lumbar Puncture Fluoroscopy 11/19/18 13:10 CONCLUSION: 1. Uncomplicated fluoroscopically guided lumbar puncture. Discharge Plan Discharge Disposition Patient Disposition: 01 Discharge Home Discharge Order Discharge Orders: Discharge Order (Routine); Ordered 11/21/18 Ordered By: Reanna Garcia Neurology Clear for Discharge (Routine); Ordered 11/21/18 Ordered By: Reanna Garcia Discharge Details Anticipated Discharge Date: 11/21/18 Discharge Comment: Recommend out patient Occupational Therapy Physicians Team Primary Care Provider: NON STAFF,PROVIDER Attending Provider: Robin Garrett Other Providers: Gama Garg Rxs /Orders / Referrals /Forms Prescriptions: New prednisone 5 mg tablet 10 mg PO TID Qty: 55 RF: 0 Continue diltiazem HCl [Cardizem] 120 mg Tablet 120 mg PO DAILY RF: 0 aspirin 81 mg Tablet,Chewable 81 mg PO DAILY RF: 0 diazepam [Valium] 5 mg Tablet 5 mg PO PRN RF: 0 buspirone 15 mg Tablet 15 mg PO TID RF: 0 bupropion HCl [Wellbutrin XL] 300 mg Tablet Extended Release 24 Hr 300 mg PO AC BREAKFAST RF: 0 Discontinued lisinopril 40 mg Tablet 40 mg PO HS RF: 0 Referrals: Gama Garg MD [Physician] - 11/28/18 12:00 am (Follow-up in 1 week) NON STAFF,PROVIDER [Primary Care Provider] - See Instructions (Follow up with PCP in 1 week ) Stand Alone Forms: Work Release/Restrictions Discharge Instructions Patient Printed Instructions: Prednisone (By mouth), Weakness (DC) Additional Instructions: KEEP ALL FOLLOW UP APPOINTMENTS INDICATED AND TAKE ALL MEDICATIONS DIRECTED. CONTACT PHYSICIAN OR RETURN TO EMERGENCY ROOM FOR ANY INCREASED SIGNS /SYMPTOMS OF TINGLING, NUMBNESS, LOSS OF USE OF BODY FUNCTIONS OR ANY OTHER PROBLEMS OR CONCERNS.Your Health Problems: Goals to Promote Your Health: * To prevent worsening of your condition * To maintain your health at the optimal level Directions to Meet Your Goals: * Take your medications as prescribed * Follow your dietary instruction * Follow activity as directed * Keep your appointments as scheduled * Take your immunizations and boosters as scheduled * If your symptoms worsen call your PCP * If no PCP go to Urgent Care or Emergency Room Smoking is dangerous to your health. Avoid second hand smoke. You may reach the 24-hour crisis hotline for domestic abuse at . Discharge Information Discharge Date/Time: 11/21/18 13:03
[2018-11-21 12:52] VITALS: BP 118/61; PULSE 67; RESP 18; TEMP 97.7; O2SAT 99
== END 2018-11-21 13:03 | disposition home or self-care (01) | DRG 99 ==
LOC: N06 23:20
PROVIDERS: ADMIT Family Medicine; ATTEND Family Medicine
DX: Z79.82 Long term (current) use of aspirin; F41.9 Anxiety disorder, unspecified; M50.30 Other cervical disc degeneration, unspecified cervical region; G35 Multiple sclerosis; G37.3 Acute transverse myelitis in demyelinating disease of central nervous system; M62.838 Other muscle spasm; I10 Essential (primary) hypertension; Z79.899 Other long term (current) drug therapy; R20.2 Paresthesia of skin; Z90.49 Acquired absence of other specified parts of digestive tract; F32.9 Major depressive disorder, single episode, unspecified; Z82.49 Family history of ischemic heart disease and other diseases of the circulatory system
CPT/HCPCS: 62270; 70544; 70553; 72156; 72157; 72158; 77003; 80048; 80053; 81001; 82042; 82164; 82607; 82784; 82945; 83520; 83873; 83916; 84155; 84157; 84443; 85025; 85027; 85610; 85651; 85652; 85730; 86038; 86039; 86140; 86225; 86235; 86255; 86403; 86431; 86592; 86780; 86781; 87070; 87086; 87205; 87327; 87389; 87449; 87498; 88108; 89051; 97110; 97116; 97162; 97167; 97530; 97535; A9585; J2930